=== PATIENT | female | born 2000 | race American Indian/Alaskan Native ===

== ENCOUNTER 2021-06-05 22:00 | Emergency (ER) | payer MEDICAID ==
--- NOTE | 2021-06-05 22:13 | Emergency Department Report ---
ED Psych HPI - General Chief Complaint: Psych Stated Complaint: SI Time Seen by Provider: 06/05/21 22:12 Source: EMS Mode of arrival: Stretcher - History of Present Illness Initial Comments: Patient presented as an overdose. She reportedly took ibuprofen. EMS states that the patient took at least 4 g of ibuprofen. Patient states that she took ibuprofen and tramadol. She wanted to harm her self. She states that she does not want to harm her self now but cannot tell me what changed. EMS was called because of the overdose. Patient states that she feels weak. She has no cough or congestion. No chest pain. She is not hearing voices that are telling her to harm her self. Mother is present. The mother states that she did not know what the patient took because she was not at location at the time of ingestion. - Related Data Allergies Allergy/AdvReac Type Severity Reaction Status Date / Time No Known Allergies Allergy Verified 06/06/21 00:21 ED Review of Systems ROS: Stated complaint: SI Other details as noted in HPI Comment: All other systems reviewed and negative Constitutional: denies: fever Eyes: denies: vision change ENT: denies: epistaxis Respiratory: denies: cough Endocrine: denies: unexplained weight loss Gastrointestinal: denies: hematemesis Genitourinary: denies: hematuria Musculoskeletal: denies: back pain Skin: denies: rash Neurological: as per HPI, weakness Psychiatric: as per HPI, suicidal thoughts Hematological/Lymphatic: denies: easy bruising ED Past Medical Hx - Past Medical History Previous Medical History?: No - Family History Family history: no significant ED Physical Exam - General Limitations: No Limitations, Physical Limitation (Patient is withdrawn and reserved. She does not want to answer questions.), Other (Pulse ox noted and normal) General appearance: alert, in no apparent distress - Head Head exam: Present: atraumatic, normocephalic - Eye Eye exam: Present: normal appearance, EOMI. Absent: scleral icterus - ENT ENT exam: Present: normal orophraynx, normal external ear exam - Neck Neck exam: Present: normal inspection. Absent: meningismus - Respiratory Respiratory exam: Present: normal lung sounds bilaterally. Absent: respiratory distress - Cardiovascular Cardiovascular Exam: Present: regular rate, normal rhythm - GI/Abdominal GI/Abdominal exam: Present: soft. Absent: distended, tenderness - Extremities Exam Extremities exam: Present: normal capillary refill. Absent: calf tenderness - Back Exam Back exam: Absent: CVA tenderness (R), CVA tenderness (L) - Neurological Exam Neurological exam: Present: alert, oriented X3, CN II-XII intact. Absent: motor sensory deficit - Psychiatric Psychiatric exam: Present: flat affect, suicidal ideation - Skin Skin exam: Present: warm, dry ED Course Vital Signs 06/05/21 06/05/21 06/06/21 22:10 23:00 03:00 Temperature 98.5 F Pulse Rate 88 84 Respiratory 16 18 18 Rate Blood Pressure 110/70 123/85 [Left] O2 Sat by Pulse 98 98 100 Oximetry - Reevaluation(s) Reevaluation #1: 06/05/21 22:13 EMS was met upon arrival. Labs ordered. Old records reviewed. Reevaluation #2: 06/05/21 23:20 Labs are pending. Acetaminophen is noted. Reevaluation #3: 06/05/21 23:42 Labs have been noted. Urine drug screen is pending. Patient is medically cleared. She is not . Reevaluation #4: 06/06/21 04:50 Urine is pending. We will await psychiatric disposition. - Consultations Consultation #1: 06/05/21 23:42 Mother's phone number [phone] ED Medical Decision Making - Lab Data Result diagrams: 06/05/21 22:24 06/05/21 22:24 Critical Care Time: No Critical care attestation.: If time is entered above; I have spent that time in minutes in the direct care of this critically ill patient, excluding procedure time. ED Disposition Clinical Impression: Overdose Qualifiers: Encounter type: initial encounter Injury intent: intentional self-harm Qualified Code(s): T50.902A - Poisoning by unspecified drugs, medicaments and biological substances, intentional self-harm, initial encounter Suicide gesture Qualifiers: Encounter type: initial encounter Qualified Code(s): X83.8XXA - Intentional self-harm by other specified means, initial encounter Disposition: 30 STILL A PATIENT Is pt being admited?: No Condition: Stable
[2021-06-05 22:53] LABS: Basophils # (Auto) 0.1 K/mm3 (0.0-0.1); Basophils % (Auto) 1.2 % (0.0-1.8); Eosinophils # (Auto) 0.1 K/mm3 (0.0-0.4); Eosinophils % (Auto) 1.3 % (0.0-4.3); Hematocrit 35.4 % (30.3-42.9); Hemoglobin 11.3 gm/dl (10.1-14.3); Lymphocytes # (Auto) 1.9 K/mm3 (1.2-5.4); Lymphocytes % (Auto) 25.6 % (13.4-35.0); Mean Corpuscular HGB Conc 32 % (30-34); Mean Corpuscular Volume 78 fl (79-97); Monocytes # (Auto) 0.6 K/mm3 (0.0-0.8); Monocytes % (Auto) 7.6 % (0.0-7.3); Platelet Count 188 K/mm3 (140-440); Red Blood Count 4.51 M/mm3 (3.65-5.03); Red Cell Distribution Width 16.6 % (13.2-15.2)
[2021-06-05 23:06] LABS: Alanine Aminotransferase 11 units/L (7-56); Albumin 4.3 g/dL (3.9-5); Blood Urea Nitrogen 9 mg/dL (7-17); Calcium 8.9 mg/dL (8.4-10.2); Hemolysis Index 5
[2021-06-05 23:35] LABS: BUN/Creatinine Ratio 18
[2021-06-06 05:27] LABS: Amphetamine Screen,Urine Negative; Benzodiazepines Screen,Urine Negative; Cocaine Screen,Urine Negative; Opiate Screen,Urine Negative
[2021-06-06 05:54] LABS: Cannabinoid Screen,Urine Positive; Methadone Screen,Urine Positive
--- NOTE | 2021-06-06 11:42 | Consultation ---
History of Present Illness - Reason for Consult Consult date: 06/06/21 Reason for consult: suicidal attempt - History of Present Psychiatric Illness ED Note:Patient presented as an overdose. She reportedly took ibuprofen. EMS states that the patient took at least 4 g of ibuprofen. Patient states that she took ibuprofen and tramadol. She wanted to harm her self. She states that she does not want to harm her self now but cannot tell me what changed. EMS was called because of the overdose. Patient states that she feels weak. She has no cough or congestion. No chest pain. She is not hearing voices that are telling her to harm her self. Mother is present. The mother states that she did not know what the patient took because she was not at location at the time of ingestion. Erich Hayes is a 20 year female with no psychiatric history. In my interview with the patient, she is calm, alert and oriented x3. The patient reports that she has been feeling " sad " for a couple of days and that yesterday she started having suicidal ideation " I was just thinking about stuff, and I took some pills" The patient is unable to clearly state her stressor. The patient Endorses feeling depressed. She denies any current suicidal/homicidal ideation and denies hallucinations. PAST PSYCHIATRIC HISTORY: Diagnoses: Denies Suicide attempts or Self-harm behavior: Denies Prior psychiatric hospitalizations: Denies Substance Abuse history: Denies Previous psychiatric medications tried:Denies Outpatient treatment:unknown PAST MEDICAL HISTORY: Family Psychiatric History: None reported or documented SOCIAL HISTORY Marital Status: Single Living Arrangements: Lives with parents Employment Status:employed Access to guns/weapons: Denies Education: 12th grade History of Abuse: n/a Legal History:Unknown REVIEW OF SYSTEMS Constitutional: Negative for weight loss ENT: Negative for stridor Respiratory: Negative for cough or hemoptysis All other systems reviewed and are negative MENTAL STATUS EXAMINATION General Appearance and Behavior: Age appropriate, good hygiene, wearing appropriate clothes, uncooperative polite with questioning. Cooperation: cooperative Psychomotor Behavior: Psychomotor agitation Mood:depressed Affect and affective range:congruent Thought Process:goal directed Thought Content: reality oriented Speech:Normal Intellectual Functioning: Average Suicidal Ideation:Denies Homicidal Ideation: Denies Hallucination: Denies Impulse Control:Questionable Insight and Judgment:limited insight and good judgment Memory: Intact Attention:Good Orientation: Alert and oriented Diagnoses: Major depressive disorder (1) 1013 Treatment Plan: Continue - Home Medications. Start Prozac 10mg po daily Patient should be compliant with medications and not to use drugs and not to drink alcohol. PSYCHOTHERAPY: Supportive psychotherapy provided MEDICAL: Per primary team DELIRIUM PRECAUTIONS: Please re-orient patient frequently, keep lights on during the day, and minimize benzodiazepines and opiates as these medications could worsen patient's confusion. 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 Thank you for the consult. Please contact with any questions and/or concerns. Medications and Allergies Medications and Allergies Allergies Allergy/AdvReac Type Severity Reaction Status Date / Time No Known Allergies Allergy Verified 06/06/21 00:21 Mental Status Exam - Vital signs Last Vital Signs Temp 98.5 F 06/05/21 22:10 Pulse 84 06/06/21 03:00 Resp 18 06/06/21 03:00 BP 123/85 06/06/21 03:00 Pulse Ox 100 06/06/21 03:00 Results Result Diagrams: 06/05/21 22:24 06/05/21 22:24 Abnormal lab results 06/05/21 06/05/21 06/05/21 Range/Units 22:24 22:24 22:24 MCV 78 L (79-97) fl MCH 25 L (28-32) pg RDW 16.6 H (13.2-15.2) % [place] % (Auto) 7.6 H (0.0-7.3) % Creatinine 0.5 L (0.6-1.2) mg/dL Salicylates < 0.3 L (2.8-20.0) mg/dL Acetaminophen (10.0-30.0) ug/mL 06/05/21 Range/Units 22:24 MCV (79-97) fl MCH (28-32) pg RDW (13.2-15.2) % [place] % (Auto) (0.0-7.3) % Creatinine (0.6-1.2) mg/dL Salicylates (2.8-20.0) mg/dL Acetaminophen 5.0 L (10.0-30.0) ug/mL All other labs normal.
[2021-06-06] MEDS ORDERED: FLUoxetine 10 MG TAB PO SCH (12:00)
[2021-06-06 18:56] LABS: Amphetamine Screen,Urine Negative; Bacteria,Urine 1+ /HPF (Negative); Benzodiazepines Screen,Urine Negative; Bilirubin,Urine NEG (Negative); Blood,Urine NEG (Negative); Cocaine Screen,Urine Negative; Color,Urine Yellow (Yellow); Methadone Screen,Urine Negative; Mucus,Urine 1+ /HPF; Opiate Screen,Urine Negative; Protein,Urine <15 mg/dL mg/dL (Negative); Urobilinogen,Urine < 2.0 mg/dL (<2.0)
[2021-06-06 19:09] LABS: Cannabinoid Screen,Urine Positive
[2021-06-06] MEDS ORDERED: cephALEXin 500 MG CAP PO SCH (23:45)
--- NOTE | 2021-06-07 10:34 | Progress Note ---
Subjective - Reason for Consult Consult date: 06/07/21 Reason for consult: suicidal attempt - Chief Complaint Chief complaint: The patient was seen this morning. She reports doing well. She states sleep and appetite as good. The patient denies any current suicidal/homicidal ideation and denies hallucinations. Due to the patient's recent suicidal attempt via overdosing, a continued recommend to acute inpatient psychiatric hospitalization s most appropriate for continuation of care. REVIEW OF SYSTEMS Constitutional: Negative for weight loss ENT: Negative for stridor Respiratory: Negative for cough or hemoptysis All other systems reviewed and are negative MENTAL STATUS EXAMINATION General Appearance and Behavior: Age appropriate, good hygiene, wearing appropriate clothes, uncooperative polite with questioning. Cooperation: cooperative Psychomotor Behavior: Psychomotor agitation Mood:depressed Affect and affective range:congruent Thought Process:goal directed Thought Content: reality oriented Speech:Normal Intellectual Functioning: Average Suicidal Ideation:Denies Homicidal Ideation: Denies Hallucination: Denies Impulse Control:Questionable Insight and Judgment:limited insight and good judgment Memory: Intact Attention:Good Orientation: Alert and oriented Diagnoses: Major depressive disorder (1 1013 Treatment Plan: Continue - Home Medications. Continue Prozac 10mg po daily Patient should be compliant with medications and not to use drugs and not to drink alcohol. PSYCHOTHERAPY: Supportive psychotherapy provided MEDICAL: Per primary team DELIRIUM PRECAUTIONS: Please re-orient patient frequently, keep lights on during the day, and minimize benzodiazepines and opiates as these medications could worsen patient's confusion. 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 Thank you for the consult. Please contact with any questions and/or concerns. Medications and Allergies Mental Status Exam - Vital signs Last Vital Signs Temp 98.5 F 06/07/21 04:02 Pulse 83 06/07/21 04:02 Resp 18 06/07/21 04:02 BP 102/52 06/07/21 04:02 Pulse Ox 98 06/07/21 04:02
--- NOTE | 2021-06-07 11:05 | Emergency Department Report ---
Blank Doc - Documentation Documentation: This patient presented 2 days ago with a suicide attempt via overdose of ibupr ofen. She was medically cleared by my colleague. She was seen again today by the psychiatric team who recommends inpatient stabilization and therefore the patient will remain on a 1013. No events overnight. Vital signs reassuring including being afebrile. We will continue to monitor this patient during her ED course.
[2021-06-07 11:39] VITALS: BP 109/52
== END 2021-06-07 13:13 | disposition still patient (30) ==
LOC: ED 22:00
DX: T39.311A Poisoning by propionic acid derivatives, accidental (unintentional), initial encounter (principal); Y92.89 Other specified places as the place of occurrence of the external cause
CPT/HCPCS: 36415; 80053; 80307; 80320; 81001; 84443; 84703; 85025; 87076; 87086; 87186; 99285; G0480